=== PATIENT | female | born 1960 | race African-American/Black ===

== ENCOUNTER 2019-05-01 16:14 | Emergency (ER) | payer SELFPAY ==
[~2019-05-01] VITALS: Ht 154.9 cm; Wt 68.0 kg
[2019-05-01 16:26] VITALS: BP 125/68
== END 2019-05-01 21:41 | disposition left against medical advice (07) ==
LOC: ER 16:14
DX: R10.11 Right upper quadrant pain (principal); R11.0 Nausea; Z53.21 Procedure and treatment not carried out due to patient leaving prior to being seen by health care provider